=== PATIENT | male | born 1960 | race Caucasian/White ===

== ENCOUNTER → 2019-06-26 | Outpatient (CLI) | payer OTHER ==
--- NOTE | 2019-06-26 14:45 | RAD ---
EXAM DESCRIPTION: Arthrogram Shoulder Right: RF CLINICAL HISTORY: ROTATOR CUFF TEAR COMPARISON: Post-arthrogram CT scan of the right shoulder same date. TECHNIQUE: The procedure was performed by Dr. Sosa; explained to the patient with risks and benefits. Timeout performed to identify patient and procedure. The patient gave verbal and written consent. Contrast mixture of 10 mL non-ionic 300 contrast and 10 mL of sterile normal saline was prepared. Patient supine on the fluoroscopic table with right shoulder in external rotation. The anterior mid superior right glenohumeral joint was localized by fluoroscopy. The skin was marked, then prepped and draped in a sterile fashion. Intradermal, subcutaneous and intramuscular 1% Xylocaine was given for topical anesthesia. A 1.5 inch, 25-gauge needle was introduced into the anterior superior right glenohumeral joint capsule under fluoroscopic visualization. A test injection of 2 cc of non-ionic 300 was performed under fluoroscopy. Additional 8 CC of contrast mixture was then injected under fluoroscopy. The patient tolerated the procedure well. Active exercise. Patient was transferred to the CT suite for spiral-axial and reconstruction imaging. No immediate complications. Single anterior AP image of the right shoulder in external rotation recorded for the patient's permanent medical record. Total fluoroscopic time was 1.3 minutes. DAP: 2.82 Gy-cm2. IMPRESSION: Successful, arthrogram of the right shoulder prior to CT scan. Please see images and report from CT right shoulder arthrogram today. Electronically signed by: Mauricio Sosa MD 06/26/2019 2:44 PM CDT
--- NOTE | 2019-06-27 09:18 | CT ---
Study: CT Arthrogram of the Right Shoulder. Indication: Right shoulder pain. Rotator cuff tear. Technique: Axial CT of the right shoulder was performed after intra-articular injection of contrast. Coronal and sagittal reformats performed. Please see the accompanying report regarding the procedural portion of this exam. This exam was performed according to our departmental dose-optimization program, which includes automated exposure control, adjustment of the mA and/or kV according to patient size and/or use of iterative reconstruction technique. 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 Type I acromion. Irregular intermediate to high grade articular tearing throughout the critical zone of the anterior two thirds of the supraspinatus tendon. Involved area measures approximately 12 mm AP by 11 mm transverse. Areas of subtle full-thickness fissuring likely present with overlying moderate subacromial/subdeltoid bursal contrast present. Both tendons are slightly attenuated with mild medial myotendinous retraction by 6 mm. Subscapularis tendinosis and attenuation. Teres minor tendon intact. Grade 1 fatty infiltration rotator cuff musculature. Long head biceps tendon flattened at the superior margin intertubercular groove without transection. Circumferential labral truncation without contrast filled full-thickness tear. Grade 4 chondrosis and subchondral cystic change throughout the posterior glenoid rim with additional areas of grade 2 and 3 chondral loss of the joint. Tiny inferior osteophytes. No acute fracture. Impression: Irregular intermediate to high-grade articular tearing throughout the critical zone of the supraspinatus tendon with suspected foci of full-thickness fissuring. Subscapular tendinosis and attenuation. Grade 1 fatty infiltration rotator cuff musculature. Long head biceps tendon flattening at the superior margin intertubercular groove without rupture or complete dislocation. Circumferential labral truncation. Mild to moderate glenohumeral joint osteoarthritis with grade 4 chondrosis of the posterior glenoid rim. 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 Electronically signed by: Avila Cordova MD 06/27/2019 9:17 AM CDT
== END ==
LOC: CT 13:00
PROVIDERS: ATTEND Orthopaedic Surgery
DX: M75.101 Unspecified rotator cuff tear or rupture of right shoulder, not specified as traumatic (principal); M75.91 Shoulder lesion, unspecified, right shoulder; M19.011 Primary osteoarthritis, right shoulder